=== PATIENT | female | born 1990 | race Caucasian/White ===

== ENCOUNTER → 2019-01-27 17:03 | Outpatient (CLI) | payer OTHER, SELFPAY ==
[2019-01-27 17:53] LABS: Basophils % 0.1 % (0.1-2.0); Eosinophils % 0.3 % (0.1-12.0); Hematocrit 35.9 % (37.0-47.0); Hemoglobin 11.8 g/dL (12.2-16.2); Lymphocytes # 0.9 K/mm3 (0.7-4.5); Mean Corpuscular Hemoglobin 28.3 pg (27.0-31.2); Mean Corpuscular Volume 85.7 fl (81-99); Mean Platelet Volume 8.3 fl (7.4-10.4); Monocytes # 0.3 K/mm3 (0.1-1.0); Monocytes % 3.2 % (1.7-9.3); Neutrophils # 7.3 K/mm3 (1.8-7.8); Neutrophils % 86.4 % (37.0-80.0); Platelet Count 211 K/mm3 (142-424); Red Blood Count 4.19 M/mm3 (4.20-5.40); Red Cell Distribution Width 13.1 % (11.5-17.5); White Blood Count 8.5 K/mm3 (4.8-10.8)
[2019-01-27 18:08] LABS: MANUAL DIFFERENTIAL MANUAL DIFFERENTIAL (MANUAL DIFF)
[2019-01-27 19:29] LABS: Lymphocytes % 9 % (10-50); Monocytes % 5 % (2-9); Neutrophils % 85 % (42-76); Total Cells Counted 100
[2019-01-27 19:31] LABS: Platelet Estimate Normal; RBC Morphology Normal
[2019-01-27 20:01] LABS: Alanine Aminotransferase 31 U/L (12-78); Albumin Level 4.2 gm/dL (3.4-5.0); Albumin/Globulin Ratio 1.6 (1.1-1.8); Alkaline Phosphatase 55 U/L (46-116); Anion Gap 14.1 mEq/L (5-15); Aspartate Amino Transferase 18 U/L (15-37); Bilirubin,Total 0.5 mg/dL (0.2-1.0); Blood Urea Nitrogen 17 mg/dL (7-18); Calcium 8.6 mg/dL (8.5-10.1); Carbon Dioxide 26 mmol/L (21.0-32.0); Chloride 104 mmol/L (98-107); Chol/HDL Ratio 2.3 (1-3.5); Cholesterol 156 mg/dL (140-200); Creatinine,Serum 0.77 mg/dL (0.55-1.02); Estimated Glomerular Filt Rate 89 ml/min (>60); GFR (African American) 108 ML/MIN (>60); Globulin 2.6 gm/dl (1.3-3.2); Glucose 79 mg/dL (74-106); HDL Cholesterol 67 mg/dL (29-89); LDL Cholesterol 80 mg/dL (0-130); Potassium 4.1 mmoL/L (3.5-5.1); Sodium 140 mmol/L (136-145); Total Protein,Serum 6.8 gm/dL (6.4-8.2); Triglycerides 43 mg/dL (30-200); VLDL Cholesterol 9 mg/dL (0-40)
[2019-01-29 10:48] LABS: FSH 5.6 mIU/mL (.); LH 22.7 mIU/mL (.); Vitamin D 25 Hydroxy 28.3 ng/mL (30.0-100.0)
[2019-01-29 17:04] LABS: Peripheral Smear Review Scanned Result
[2019-02-01 09:48] LABS: Estrogen 239 pg/mL (.)
== END ==
PROVIDERS: Visit Provider Physician Assistant
DX: D70.9 Neutropenia, unspecified (principal)
CPT/HCPCS: 80053; 80061; 82652; 82672; 83001; 83002; 85007; 85025

== ENCOUNTER → 2019-02-16 12:42 | Outpatient (CLI) | payer OTHER, SELFPAY ==
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
== END ==
PROVIDERS: PCP Physician Assistant; Visit Provider Physician Assistant
DX: R42 Dizziness and giddiness (principal); R51 Headache; Z80.8 Family history of malignant neoplasm of other organs or systems
CPT/HCPCS: 70450

== ENCOUNTER → 2019-08-25 11:40 | Outpatient (CLI) | payer OTHER, SELFPAY ==
--- NOTE | 2019-08-25 11:57 | XR_ITS ---
PROCEDURE: XR LUMBAR SPINE 2-3V CLINICAL INDICATION: back pain COMPARISON: No exams were available for comparison FINDINGS: Bone density, vertebral body heights and disc space heights are normal. Posterior elements are intact. There is mild curvature, convex towards the right. There are 2 punctate calcific densities overlying the lower pole of the right renal shadow. IMPRESSION: No acute process. Possible mild dextroscoliosis versus positioning during the exam. Possible punctate lower pole right renal calculi. Dictated by: Benny Carrero 08/25/2019 13:22 Electronically signed by Benny Carrero in [facility] 08/25/2019 13:22
[2019-08-25 12:01] LABS: Basophils # 0.1 K/mm3 (0-0.2); Basophils % 0.8 % (0.1-2.0); Eosinophils # 0.1 K/mm3 (0.0-0.4); Eosinophils % 1.8 % (0.1-12.0); Hematocrit 40.3 % (37.0-47.0); Hemoglobin 12.5 g/dL (12.2-16.2); Lymphocytes # 2.1 K/mm3 (0.7-4.5); Lymphocytes % 27.3 % (10-50); Mean Corpuscular Hemoglobin 26.8 pg (27.0-31.2); Mean Corpuscular Volume 86.6 fl (81-99); Mean Platelet Volume 7.9 fl (7.4-10.4); Monocytes # 0.4 K/mm3 (0.1-1.0); Monocytes % 5.1 % (1.7-9.3); Neutrophils # 5.1 K/mm3 (1.8-7.8); Platelet Count 241 K/mm3 (142-424); Red Blood Count 4.65 M/mm3 (4.20-5.40); Red Cell Distribution Width 13.9 % (11.5-17.5); White Blood Count 7.8 K/mm3 (4.8-10.8)
[2019-08-25 12:47] LABS: HCG Qualitative, Serum Negative (Negative)
[2019-08-25 14:16] LABS: Erythrocyte Sedimentation Rate 14 mm/hr (0-20)
[2019-08-25 14:50] LABS: Alanine Aminotransferase 19 U/L (12-78); Albumin Level 3.9 gm/dL (3.4-5.0); Albumin/Globulin Ratio 1.3 (1.1-1.8); Alkaline Phosphatase 63 U/L (46-116); Anion Gap 14.1 mEq/L (5-15); Aspartate Amino Transferase 12 U/L (15-37); Bilirubin,Total 0.4 mg/dL (0.2-1.0); Blood Urea Nitrogen 13 mg/dL (7-18); Calcium 8.4 mg/dL (8.5-10.1); Carbon Dioxide 27 mmol/L (21.0-32.0); Chloride 106 mmol/L (98-107); Estimated Glomerular Filt Rate 99 ml/min (>60); GFR (African American) 120 ML/MIN (>60); Globulin 2.9 gm/dl (1.3-3.2); Glucose 67 mg/dL (74-106); Potassium 4.1 mmoL/L (3.5-5.1); Sodium 143 mmol/L (136-145); Total Protein,Serum 6.8 gm/dL (6.4-8.2); Uric Acid 2.9 mg/dL (2.6-7.2)
[2019-08-25 14:54] LABS: C-Reactive Protein < 0.2 mg/dL (0.0-0.9)
[2019-08-26 11:31] LABS: Anti-Centromere B Antibodies <0.2 AI (0.0-0.9); Anti-Jo-1 <0.2 AI (0.0-0.9); Anti-Smith Antibody <0.2 AI (0.0-0.9); Antichromatin Antibodies <0.2 AI (0.0-0.9); Antiscleroderma-70 Antibodies <0.2 AI (0.0-0.9); RNP Antibodies <0.2 AI (0.0-0.9); Sjogren's Anti-SS-A <0.2 AI (0.0-0.9); Sjogren's Anti-SS-B <0.2 AI (0.0-0.9)
[2019-08-26 11:43] LABS: Anti-DNA (DS) Ab Qn <1 IU/mL (0-9); RA Latex Turbid. 10.9 IU/mL (0.0-13.9)
[2019-08-26 18:58] LABS: Antinuclear Antibodies, IFA Negative (.)
[2019-08-29 09:10] LABS: PTT-LA 39.5 sec (0.0-51.9); dRVVT 37.3 sec (0.0-47.0)
[2019-08-29 15:19] LABS: Lupus Reflex Interpretation Comment: (.)
== END ==
PROVIDERS: Visit Provider Nurse Practitioner Family
DX: M54.9 Dorsalgia, unspecified (principal)
CPT/HCPCS: 36415; 72100; 80053; 84550; 84703; 85025; 85613; 85651; 86038; 86140; 86225; 86235; 86431

== ENCOUNTER → 2019-09-05 12:15 | Outpatient (CLI) | payer OTHER, SELFPAY ==
--- NOTE | 2019-09-05 13:21 | XR_ITS ---
PROCEDURE: XR SCOLIOSIS SURVEY CLINICAL INDICATION: mild dextroscoliosis COMPARISON: XR LUMBAR SPINE 2-3V from 08/25/2019 FINDINGS: There is a mild lower thoracic curvature convex left measuring 6 degrees. There is a mild lumbar scoliosis convex right measuring 10 degrees. This is not significantly changed. IMPRESSION: Mild thoracolumbar scoliosis as described above Dictated by: Jey Jiménez MD 09/05/2019 19:53 Electronically signed by Jey Jiménez MD in [facility] 09/05/2019 19:53
[2019-09-05 13:27] LABS: Glucose,Fasting 90 mg/dL (60-105)
[2019-09-05 14:31] LABS: Glucose 1 Hour 106 mg/dL (74-106)
[2019-09-05 16:07] LABS: Glucose 2 Hour 96 mg/dL (74-106)
[2019-09-05 16:46] LABS: Glucose 3 Hour 94 mg/dL (74-106)
== END ==
PROVIDERS: PCP Emergency Medicine; Visit Provider Nurse Practitioner Family
DX: E16.2 Hypoglycemia, unspecified (principal); M54.9 Dorsalgia, unspecified
CPT/HCPCS: 36415; 72081; 82951

== ENCOUNTER → 2019-09-07 15:16 | Outpatient (CLI) | payer OTHER, SELFPAY ==
--- NOTE | 2019-09-07 15:17 | CT_ITS ---
PROCEDURE: CT ABDOMEN PELVIS WO CON CLINICAL INDICATION: possible kidney stone seen on lumbar film Left flank pain, mid back pain COMPARISON: XR LUMBAR SPINE 2-3V from 08/25/2019 XR SCOLIOSIS SURVEY from 09/05/2019 TECHNIQUE: Axial images obtained with sagittal and coronal reformats. All CT scans at the facility use one or more dose reduction, viz: automated exposure control, ma/kV adjustment per patient size (including targeted exams where dose is matched to indication, i.e. head), or iterative reconstruction technique. FINDINGS: LOWER THORAX: The pericardium is thickened posteriorly measuring up to 2 cm consistent pericardial effusion. ABDOMEN & PELVIS: The gallbladder is contracted. The liver, spleen, adrenal glands, and pancreas have an unremarkable unenhanced appearance. A 4 mm stone overlies the lower pole of the right kidney. No hydronephrosis. No ureteral calculus. No intestinal obstruction or free air. No evidence of appendicitis. There is a small amount of fluid in the cul-de-sac which is nonspecific. No obvious pelvic mass or abnormal fluid collection. There is mild degenerative disc disease at L5-S1. IMPRESSION: 1. Nonobstructing right nephrolithiasis. 2. Small amount of fluid in the cul-de-sac 3. Pericardial effusion Dictated by: Jey Jiménez MD 09/07/2019 16:08 Electronically signed by Jey Jiménez MD in [facility] 09/07/2019 16:08
== END ==
PROVIDERS: PCP Emergency Medicine; Visit Provider Nurse Practitioner Family
DX: N20.0 Calculus of kidney (principal)
CPT/HCPCS: 74176

== ENCOUNTER → 2019-09-14 08:00 | Outpatient (CLI) | payer OTHER, SELFPAY ==
--- NOTE | 2019-09-14 08:01 | CA_ITS ---
APPROVED REPORT EXAM: Comprehensive 2D, Doppler, and color-flow Echocardiogram Electrical Lineman: Reina Kurtz RT(R) Ht: 5 ft 6 in Wt: 116lbs BSA: 1.59 BP: 118/80 mmHg Indications: Pericardial effusion on CT scan, family hx of HD, ALEJANDRA, Fatigue, 2D Dimensions LVOT 1.99 cm (M/F) 1.5-2.5 M-Mode Dimensions RVDd 1.67 cm (0.9-2.6) LVDd 5.06 cm (3.5-5.7) LVDs 3.58 cm (3.5-5.7) IVSd 0.75 cm (0.6-1.1) PWd 0.48 cm (0.6-1.1) EF (Teich) 55.80% FS 29.20% EDV (Teich) 121.60 mL ESV (Teich) 53.70 mL LV Diastology E/A Ratio 2.46 Mitral Valve MV A Velocity 37.00 (40-130 cm/s) Left Ventricle Left atrium is normal size, left ventricle is normal size, there is no concentric left ventricular hypertrophy, visually estimated ejection fraction 55% with no regional wall motion abnormality. Diastolic parameters are within normal range. Right Ventricle Right atrium right ventricular normal size and contractility. Aortic Valve Aortic valve is grossly normal, there is no aortic stenosis aortic insufficiency. Mitral Valve Mitral valve is grossly normal, there is no mitral stenosis, there is trace mitral regurgitation. Tricuspid Valve Tricuspid valve is grossly normal, there is trace tricuspid regurgitation. Tricuspid regurgitation jet velocity is inadequate for calculation of the right ventricular systolic pressure. Pulmonic Valve Pulmonic valve is poorly visualized. Great Vessels Aortic root is normal size. Pericardium Trivial pericardial effusion noted. Conclusion 1. Normal left ventricular size, preserved left ventricular systolic function, visually estimated ejection fraction 55% with no regional wall motion abnormality, diastolic parameters are within normal range. 2. Trace mitral and tricuspid regurgitation 3. Trivial pericardial effusion noted. Electronically signed by : Jose Roblero, 09/15/2019 14:13:53
== END ==
PROVIDERS: PCP Emergency Medicine; Visit Provider Internal Medicine Cardiovascular Disease
DX: I31.3 Pericardial effusion (noninflammatory) (principal); R06.00 Dyspnea, unspecified; Z82.49 Family history of ischemic heart disease and other diseases of the circulatory system
CPT/HCPCS: 93306

== ENCOUNTER → 2019-10-10 14:18 | Outpatient (CLI) | payer OTHER, SELFPAY ==
[2019-10-10 14:47] LABS: Urine Pregnancy, HCG Qual. Negative (Negative)
== END ==
PROVIDERS: Visit Provider Specialist
DX: R51 Headache (principal); H53.9 Unspecified visual disturbance
CPT/HCPCS: 81025

== ENCOUNTER 2019-11-02 13:00 | Outpatient (RCR) | payer OTHER, SELFPAY ==
--- NOTE | 2019-09-23 14:54 | HMH.PTOPEV ---
PT Outpatient Evaluation Rehab PT Outpatient Evaluation Start: 09/23/19 14:39 Freq: Status: Active Protocol: Document 09/23/19 14:39 SHARLA (Rec: 09/23/19 14:53 SHARLA [id number]) Electronically Signed By Edwar Mcrae, PT 09/23/19 14:39 Outpatient Therapy Subjective History Subjective History Pt reports h/o chronic LBP and neck pain since first in 2008. Pt reports exacerbation of s/s over the last ~1-2 yrs with L>R sided neck/UTmm area pain, and L>R sided LBP with intermittent N& T in BLE's. Pt also reports h/ o intermittent mid-back pain, and R knee pain. Chief Complaint Pain,Stiff,Paresthesia Symptom Type Ache,Sharp,Dull Symptoms Relieved By Rest/Positioning Symptoms Aggravated By Bending/Stooping,Physical Activity,Twisting,Lifting Prior Functional Limitations Lifting,Housework,Squatting, Bending/Stooping Current Functional Limitations Lifting,Housework,Squatting, Balance Symptom Description Constant but Variable Level of pain today (0-10) 5 Pain scale - at its best (0-10) 5 Pain scale - at its worst (0-10) 10 Cervical Eval Palpation Cervical Muscles R Cervical Paraspinal,L Cervical Paraspinal,R Suboccipital,L Suboccipital,R CT Junction,L CT Junction,R Upper Trapezius,L Upper Trapezius Cervical/Thoracic Palpation Findings Tenderness,Trigger Point Posture Head/C-Spine Posture Sitting Position Neutral Position Head/C-Spine Posture Standing Position Neutral Position Flexibility Deficits Upper Trapezius Muscle Length (R) Mild Tightness,(L) Mild Tightness Scalene Group Muscle Length (R) Mild Tightness,(L) Mild Tightness Pectoralis Major Muscle Length (R) Mild Tightness,(L) Mild Tightness Passive Joint Mobility Cervical PIVM WNL: R OA L OA R AA L AA R C2/3 L C2/3 R C3/4 L C3/4 R C4/5 L C4/5 R C5/6
--- NOTE | 2019-10-24 13:38 | HMH.RHREAS ---
Rehab Reassessment Rehab OP Re-assessment Start: 10/24/19 12:42 Freq: Status: Active Protocol: Document 10/24/19 13:33 FRANDYGUERRERO (Rec: 10/24/19 13:38 BHANUJOSE JUANGUERRERO [id number]) Electronically Signed By Edwar Mcrae, PT 10/24/19 13:33 Rehab Re-assessment Subjective Subjective PT REPORTS 5-7/10 NECK AND LOW BACK PAIN ON VAS, AND FEELS 50% BETTER OVERALL SINCE I EVAL Objective Objective Notes AROM: C-SPINE FLX 0-90, EXT 0- 70, B SB 0-60, L-SPINE FLX 0- 90, EXT 0-10, B SB 0-35 MMT: B DELTOID 4-4+/5, B HIP FLX/ABD/EXT/ADD 4/5 TTP: L UT 1-2/4, R UT /4, B LUMBAR PARA. 09/03 Assessment Progress Assessment Progressing as Expected Assessment Notes PT W/IMPROVED STRENGTH, TTP, AND ROM Patient goals met STG'S 02/04 LTG'S 09/08 Goals Not Met STG'S 09/06, LTG'S 04/08 Plan Plan PT TO CONT. W/SKILLED P.T. TO MAKE FURTHER IMPROVEMENTS IN AROM, STRENGTH, AND TTP TO ALLOW FOR OPTIMAL FUNCTION Frequency of Therapy 1-2X/WK Duration of therapy 3-4 WKS Time and Billing Re-Eval Time 15 Re-Eval Billing Units 1 PHYSICIAN CERTIFICATION: I certify the specified therapy services for Estefania Hilton are required, authorized, and reviewed every 30 days.
== END 2019-11-02 13:55 | disposition home or self-care (01) ==
LOC: PT 13:00
PROVIDERS: PCP Nurse Practitioner Family; Visit Provider Nurse Practitioner Family
DX: M54.9 Dorsalgia, unspecified (principal)
CPT/HCPCS: 20560; 20561; 97010; 97012; 97014; 97035; 97110; 97140; 97163; 97164; G0283

== ENCOUNTER → 2020-03-20 14:23 | Outpatient (CLI) | payer OTHER, SELFPAY ==
[2020-03-20 17:03] LABS: HCG,Quantitative < 2 mIU/ml (0-5.42)
== END ==
PROVIDERS: Visit Provider Nurse Practitioner Psychiatric/Mental Health
DX: Z34.90 Encounter for supervision of normal pregnancy, unspecified, unspecified trimester (principal)
CPT/HCPCS: 36415; 84702

== ENCOUNTER → 2020-04-03 11:13 | Outpatient (CLI) | payer OTHER, SELFPAY ==
[2020-04-03 11:49] LABS: Basophils % 0.6 % (0.1-2.0); Eosinophils # 0.1 K/mm3 (0.0-0.4); Eosinophils % 2.2 % (0.1-12.0); Hematocrit 39.7 % (37.0-47.0); Hemoglobin 13.2 g/dL (12.2-16.2); Lymphocytes % 34.7 % (10-50); Mean Corpuscular HGB Conc 33.1 g/dL (31.8-35.4); Mean Corpuscular Hemoglobin 29.4 pg (27.0-31.2); Mean Corpuscular Volume 88.7 fl (81-99); Mean Platelet Volume 7.7 fl (7.4-10.4); Monocytes # 0.3 K/mm3 (0.1-1.0); Monocytes % 4.6 % (1.7-9.3); Neutrophils # 3.3 K/mm3 (1.8-7.8); Neutrophils % 57.9 % (37.0-80.0); Platelet Count 196 K/mm3 (142-424); Red Blood Count 4.48 M/mm3 (4.20-5.40); Red Cell Distribution Width 13.2 % (11.5-17.5); White Blood Count 5.7 K/mm3 (4.8-10.8)
[2020-04-03 12:13] LABS: Chloride 103 mmol/L (98-107); Potassium 4.2 mmoL/L (3.5-5.1); Sodium 140 mmol/L (136-145)
[2020-04-03 12:15] LABS: Alanine Aminotransferase 15 U/L (12-78); Blood Urea Nitrogen 13 mg/dl (7-17); Estimated Glomerular Filt Rate 98 ml/min (>60); GFR (African American) 119 ML/MIN (>60)
[2020-04-03 12:16] LABS: Albumin Level 4.5 g/dl (3.5-5.0); Alkaline Phosphatase 46 U/L (38-126); Anion Gap 12.2 mEq/L (5-15); Aspartate Amino Transferase 22 U/L (14-36); Bilirubin,Total 0.6 mg/dl (0.2-1.3); Calcium 9.3 mg/dl (8.4-10.2); Carbon Dioxide 29 mmol/L (22.0-30.0); Cholesterol 156 mg/dl (140-200); Globulin 2.3 g/dL (1.3-3.2); Glucose 93 mg/dl (74-100); HDL Cholesterol 69 mg/dl (40-60); Total Protein,Serum 6.8 g/dl (6.3-8.2); Triglycerides 70 mg/dl (30-150); VLDL Cholesterol 14 mg/dL (0-40)
[2020-04-03 12:19] LABS: Chol/HDL Ratio 2.3 (1-3.5)
[2020-04-03 12:27] LABS: Direct LDL Cholesterol 70.12 mg/dL (100-129); Hemoglobin A1C 5.2 % (4.0-6.0)
== END ==
PROVIDERS: Visit Provider Nurse Practitioner Psychiatric/Mental Health
DX: Z00.00 Encounter for general adult medical examination without abnormal findings (principal); Z79.899 Other long term (current) drug therapy; F33.41 Major depressive disorder, recurrent, in partial remission; F41.1 Generalized anxiety disorder
CPT/HCPCS: 80053; 80061; 83036; 84443; 85025

== ENCOUNTER → 2020-05-10 16:03 | Outpatient (CLI) | payer OTHER, SELFPAY ==
[2020-05-10 16:59] LABS: HCG,Quantitative 14056 mIU/ml (0-5.42)
== END ==
PROVIDERS: Visit Provider Nurse Practitioner Psychiatric/Mental Health
DX: Z34.90 Encounter for supervision of normal pregnancy, unspecified, unspecified trimester (principal)
CPT/HCPCS: 36415; 84702

== ENCOUNTER → 2020-05-23 13:16 | Outpatient (CLI) | payer OTHER, SELFPAY ==
--- NOTE | 2020-05-23 13:26 | US_ITS ---
PROCEDURE: US OB TRANSVAGINAL CLINICAL INDICATION: DATES Early Ob ultrasound for dates COMPARISON: None FINDINGS: An intrauterine gestational sac is present with a pole with a crown-rump length of 1.39 cm correlating to gestational age of 7weeks 5days. heart tones are present with an FHR of 149bpm. Yolk sac is noted. There is a 1.6 cm right ovarian cyst IMPRESSION: Live IUP at 7 weeks 5 days Estimated due date by Ultrasound is 01/04/2021 Dictated by: Jey Jiménez MD 05/23/2020 17:00 Jey Jiménez MD in [facility] 05/23/2020 17:00
== END ==
PROVIDERS: PCP Emergency Medicine; Visit Provider Obstetrics & Gynecology
DX: O26.841 Uterine size-date discrepancy, first trimester (principal)
CPT/HCPCS: 76817

== ENCOUNTER → 2020-05-28 15:06 | Outpatient (CLI) | payer OTHER, SELFPAY ==
[2020-05-28 15:29] LABS: Basophils % 0.4 % (0.1-2.0); Eosinophils # 0.1 K/mm3 (0.0-0.4); Eosinophils % 1.1 % (0.1-12.0); Hematocrit 35.1 % (37.0-47.0); Hemoglobin 11.4 g/dL (12.2-16.2); Lymphocytes # 1.8 K/mm3 (0.7-4.5); Lymphocytes % 17.3 % (10-50); Mean Corpuscular HGB Conc 32.4 g/dL (31.8-35.4); Mean Corpuscular Hemoglobin 28.8 pg (27.0-31.2); Mean Platelet Volume 7.8 fl (7.4-10.4); Monocytes # 0.4 K/mm3 (0.1-1.0); Monocytes % 4.2 % (1.7-9.3); Neutrophils # 7.9 K/mm3 (1.8-7.8); Platelet Count 211 K/mm3 (142-424); Red Blood Count 3.95 M/mm3 (4.20-5.40); Red Cell Distribution Width 12.8 % (11.5-17.5); White Blood Count 10.3 K/mm3 (4.8-10.8)
[2020-05-30 10:07] LABS: HIV Screen 4th Generation wRfx Non Reactive (Non Reactive)
[2020-05-30 13:30] LABS: Rubella Antibodies, IgG 3.88 index (Immune >0.99)
[2020-05-31 09:33] LABS: Hepatitis B Surface Antigen Negative (Negative); Hepatitis C Antibody 0.1 s/co ratio (0.0-0.9); Rapid Plasma Reagin Ab Titer Non Reactive (NonRea<1:1)
== END ==
PROVIDERS: Visit Provider Obstetrics & Gynecology
DX: Z34.90 Encounter for supervision of normal pregnancy, unspecified, unspecified trimester (principal)
CPT/HCPCS: 36415; 85025; 86592; 86703; 86762; 86850; 87340; 87380; G0432

== ENCOUNTER → 2020-08-17 10:22 | Outpatient (CLI) | payer OTHER, SELFPAY ==
--- NOTE | 2020-08-17 10:29 | US_ITS ---
PROCEDURE: US OB /MATERNAL DETAIL CLINICAL INDICATION: US OB Complete Anatomy exam COMPARISON: US US OB TRANSVAGINAL from 05/23/2020 FINDINGS: There is a single live intrauterine gestation which is in cephalic presentation. Cervix is closed and measures 3 cm. The placenta is posterior and grade 1. Complete survey performed and was unremarkable on the submitted images as in PACS. No discrete anomalies identified on survey imaging by technologist. Active fetus. Three-vessel cord with satisfactory umbilical cord insertion. 4- chamber heart noted. Survey of brain & ventricles Unremarkable. Face and neck survey unremarkable. Diaphragm and chest views unremarkable. Abdomen: Both kidneys noted and unremarkable. Stomach noted and satisfactory. Spine: Survey of the spine satisfactory with no anomalies identified nor imaged. Both arms and legs noted. Amniotic Fluid: Adequate. Maternal adnexa: No significant findings. Measurements: Average ultrasound age 20weeks. Gestational Age 20weeks Estimated due date by ultrasound age 0501/04/2021. Estimated weight 319g BPD = 20weeks 1day OFD = 20weeks 5days HC = 19weeks 5days AC = 20weeks FL = 19weeks 6days Growth Percentile= 39Percent% Heart Rate = 149bpm Cerebellum = 20weeks Humerus = 20weeks 1day HC/AC is 1.16 CI is 0.76 FL/BPD is 0.68 FL/AC is 0.21 IMPRESSION: Live IUP with an average ultrasound age of 20 weeks. No obvious anomalies. Please see above for detail Dictated by: Jey Jiménez MD 08/18/2020 10:29 Jey Jiménez MD in [facility] 08/18/2020 10:29
== END ==
PROVIDERS: PCP Emergency Medicine; Visit Provider Obstetrics & Gynecology
DX: Z36.0 Encounter for antenatal screening for chromosomal anomalies (principal)
CPT/HCPCS: 76811

== ENCOUNTER → 2020-10-12 09:50 | Outpatient (CLI) | payer OTHER, SELFPAY ==
[2020-10-12 10:39] LABS: Glucose,Fasting 94 mg/dl (74-100)
[2020-10-12 11:36] LABS: Glucose 1 Hour 112 mg/dL (74-100)
== END ==
PROVIDERS: Visit Provider Obstetrics & Gynecology
DX: Z34.90 Encounter for supervision of normal pregnancy, unspecified, unspecified trimester (principal)
CPT/HCPCS: 36415; 82951

== ENCOUNTER 2020-10-24 13:51 | Outpatient (CLI) | payer OTHER, SELFPAY ==
[2020-10-24 14:02] VITALS: BP 132/71; PULSE 98; RESP 18; TEMP 36.8; O2SAT 97
== END 2020-10-24 14:02 | disposition home or self-care (01) ==
PROVIDERS: PCP Emergency Medicine; Visit Provider Obstetrics & Gynecology
DX: Z34.90 Encounter for supervision of normal pregnancy, unspecified, unspecified trimester (principal)
CPT/HCPCS: 96372; J2790

== ENCOUNTER 2020-11-14 21:00 | Outpatient (CLI) | payer OTHER, SELFPAY ==
[2020-11-14 21:03] VITALS: BMI 23.3
[2020-11-14 21:34] VITALS: BP 119/70; PULSE 88; RESP 17; TEMP 36.9; O2SAT 97; BMI 23.3
[2020-11-14 21:38] LABS: Microscopic, Urine URINE MICROSCOPIC (MICROSCOPIC)
[2020-11-14 21:48] LABS: Appearance,Urine CLEAR (Clear); Bilirubin,Urine Negative (Negative); Blood, Urine TRACE-L (Negative); Color,Urine YELLOW (Yellow); Glucose,Urine (UA) Negative (Negative); Ketones,Urine Negative (Negative); Leukocyte Esterase,Urine Negative (Negative); Nitrate,Urine Negative (Negative); PH,Urine 6.5 (5.0-8.5); Protein,Urine Negative (Negative); Urobilinogen,Urine 0.2 EU/dl (0.2)
[2020-11-14 21:56] LABS: Barbiturates Screen,Urine Negative ng/ml (<200)
[2020-11-14 21:57] LABS: Amphetamine/Metha Screen,Urine Negative ng/ml (<1000); Benzodiazepines Screen,Urine Negative ng/ml (<200)
[2020-11-14 21:58] LABS: Cannabinoid Screen,Urine Positive ng/ml (<50)
[2020-11-14 21:59] LABS: Cocaine Screen,Urine Negative ng/ml (<300); Methadone Screen,Urine Negative ng/ml (<300)
[2020-11-14 22:00] LABS: Opiate Screen,Urine Negative ng/ml (<300)
[2020-11-14 22:01] LABS: Phencyclidine Screen,Urine Negative ng/ml (<25)
[2020-11-14 22:12] LABS: Bacteria,Urine 1+ /lpf; Mucus,Urine 1+ /lpf
[2020-11-14 22:36] LABS: Fetal Fibronectin (Rapid) Negative (Negative)
== END 2020-11-14 23:03 | disposition home or self-care (01) ==
LOC: OBOUT 21:02 → OB 21:03
PROVIDERS: PCP Obstetrics & Gynecology; Visit Provider Nurse Practitioner Obstetrics & Gynecology
DX: O47.03 False labor before 37 completed weeks of gestation, third trimester (principal); Z3A.32 32 weeks gestation of pregnancy
CPT/HCPCS: 59025; 80305; 81001; 82731; 96372; G0463

== ENCOUNTER 2020-11-15 19:50 | Outpatient (CLI) | payer OTHER, SELFPAY ==
[2020-11-15 20:00] VITALS: BP 120/67; PULSE 95; RESP 18; TEMP 36.8; O2SAT 99; BMI 23.3
--- NOTE | 2020-11-15 20:02 | PC.NURSE ---
Pt 2nd dose of celestone given
[2020-11-15 20:20] VITALS: BP 115/69; PULSE 95; RESP 18; O2SAT 97
== END 2020-11-15 20:23 | disposition home or self-care (01) ==
LOC: OBOUT 19:52 → OB 19:53
PROVIDERS: PCP Obstetrics & Gynecology; Visit Provider Obstetrics & Gynecology
DX: O47.03 False labor before 37 completed weeks of gestation, third trimester (principal); Z3A.32 32 weeks gestation of pregnancy
CPT/HCPCS: 96372; G0463

== ENCOUNTER 2020-11-29 13:51 | Outpatient (CLI) | payer OTHER, SELFPAY ==
[2020-11-29 14:29] VITALS: BMI 24.5
[2020-11-29 14:34] VITALS: BP 124/77; PULSE 61; RESP 18; TEMP 36.7; O2SAT 100; BMI 24.5
[2020-11-29 14:34] LABS: Microscopic, Urine URINE MICROSCOPIC (MICROSCOPIC)
[2020-11-29 14:36] LABS: Appearance,Urine CLEAR (Clear); Bilirubin,Urine Negative (Negative); Blood, Urine 3+ (Negative); Color,Urine YELLOW (Yellow); Glucose,Urine (UA) Negative (Negative); Ketones,Urine Negative (Negative); Leukocyte Esterase,Urine Negative (Negative); Nitrate,Urine Negative (Negative); Protein,Urine Negative (Negative); Specific Gravity, Urine >= 1.030 (1.005-1.030); Urobilinogen,Urine 0.2 EU/dl (0.2)
[2020-11-29 14:47] LABS: Barbiturates Screen,Urine Negative ng/ml (<200)
[2020-11-29 14:48] LABS: Amphetamine/Metha Screen,Urine Negative ng/ml (<1000); Benzodiazepines Screen,Urine Negative ng/ml (<200)
[2020-11-29 14:49] LABS: Cannabinoid Screen,Urine Positive ng/ml (<50)
[2020-11-29 14:50] LABS: Cocaine Screen,Urine Negative ng/ml (<300); Methadone Screen,Urine Negative ng/ml (<300)
[2020-11-29 14:51] LABS: Opiate Screen,Urine Negative ng/ml (<300); Phencyclidine Screen,Urine Negative ng/ml (<25)
== END 2020-11-29 16:00 | disposition home or self-care (01) ==
LOC: OBOUT 13:52 → OB 13:53
PROVIDERS: PCP Obstetrics & Gynecology; Visit Provider Obstetrics & Gynecology
DX: O47.03 False labor before 37 completed weeks of gestation, third trimester (principal); Z3A.35 35 weeks gestation of pregnancy
CPT/HCPCS: 59025; 80305; 81001; 96365; 96367; G0463; J2405

== ENCOUNTER 2020-12-02 07:12 | Outpatient (CLI) | payer OTHER, SELFPAY ==
[2020-12-02 07:17] VITALS: BMI 25.0
[2020-12-02 07:30] VITALS: BP 126/84; PULSE 81; RESP 18; TEMP 36.8; O2SAT 100; BMI 24.2
[2020-12-02 07:34] LABS: Microscopic, Urine URINE MICROSCOPIC (MICROSCOPIC)
[2020-12-02 07:39] LABS: Appearance,Urine CLEAR (Clear); Bilirubin,Urine Negative (Negative); Blood, Urine 3+ (Negative); Color,Urine YELLOW (Yellow); Glucose,Urine (UA) Negative (Negative); Ketones,Urine TRACE (Negative); Leukocyte Esterase,Urine Negative (Negative); Nitrate,Urine Negative (Negative); Protein,Urine Negative (Negative); Specific Gravity, Urine 1.025 (1.005-1.030); Urobilinogen,Urine 0.2 EU/dl (0.2)
[2020-12-02 07:45] LABS: Barbiturates Screen,Urine Negative ng/ml (<200); Benzodiazepines Screen,Urine Negative ng/ml (<200)
[2020-12-02 07:46] LABS: Amphetamine/Metha Screen,Urine Negative ng/ml (<1000)
[2020-12-02 07:47] LABS: Cocaine Screen,Urine Negative ng/ml (<300); Methadone Screen,Urine Negative ng/ml (<300)
[2020-12-02 07:48] LABS: Cannabinoid Screen,Urine Positive ng/ml (<50)
[2020-12-02 07:49] LABS: Opiate Screen,Urine Negative ng/ml (<300); Phencyclidine Screen,Urine Negative ng/ml (<25)
[2020-12-02 07:55] LABS: Amorphous Sediment,Urine 1+ /lpf; RBC,Urine 20-50 #/hpf (0-3)
== END 2020-12-02 09:26 | disposition home or self-care (01) ==
LOC: OBOUT 07:15 → OB 07:16
PROVIDERS: PCP Emergency Medicine; Visit Provider Obstetrics & Gynecology
DX: Z3A.35 35 weeks gestation of pregnancy; O26.833 Pregnancy related renal disease, third trimester; M54.5 Low back pain
CPT/HCPCS: 59025; 80305; 81001; 96365; 96367; G0463

== ENCOUNTER → 2020-12-10 16:30 | Outpatient (CLI) | payer OTHER, SELFPAY | PROVIDERS: Visit Provider Obstetrics & Gynecology | DX: Z34.90 Encounter for supervision of normal pregnancy, unspecified, unspecified trimester (principal) | CPT/HCPCS: 86403 ==

== ENCOUNTER → 2020-12-11 09:26 | Outpatient (CLI) | payer OTHER, SELFPAY ==
--- NOTE | 2020-12-11 09:26 | US_ITS ---
PROCEDURE: US OB FOLLOW UP CLINICAL INDICATION: Growth and ANGUS Small for gestational age COMPARISON: US US OB /MATERNAL DETAIL from 08/17/2020 FINDINGS: There is a single live fetus which is in cephalic presentation. The cervix is closed and measures 3 cm in length. The placenta is posterior and grade 3. Fetus stomach is slightly prominent. A definite double bubble is not identified. There is no polyhydramnios. ANGUS is 11 cm Measurements: Average ultrasound age 34weeks. Gestational Age 36weeks 4days Estimated due date by ultrasound age 0501/22/2021. Estimated weight 2,297g BPD = 33weeks 4days OFD = 37weeks HC = 34weeks 5days AC = 34weeks 2days FL = 33weeks 1day Growth Percentile= 5 % Heart Rate = 143bpm HC/AC is 1.02 CI is 0.74 FL/BPD is 0.77 FL/AC is 0.21 IMPRESSION: Live IUP in cephalic presentation with an average ultrasound age of 34 weeks. Estimated weight is 2297 g which is 5th percentile indicating intrauterine growth restriction. ANGUS is normal at 11 cm. The placenta is posterior and grade 3. No obvious previa or abruption Mild prominence of the fetus stomach. This does raise the question of duodenal atresia however, there is no double bubble sign and no evidence of polyhydramnios. Follow-up suggested Dictated by: Jey Jiménez MD 12/14/2020 14:36 Jey Jiménez MD in [facility] 12/14/2020 14:36
== END ==
PROVIDERS: PCP Emergency Medicine; Visit Provider Obstetrics & Gynecology
DX: O36.5990 Maternal care for other known or suspected poor fetal growth, unspecified trimester, not applicable or unspecified (principal)
CPT/HCPCS: 76816

== ENCOUNTER 2020-12-14 08:18 | Inpatient (IN) | payer OTHER, SELFPAY ==
[2020-12-14 07:20] VITALS: BP 121/80; PULSE 88; RESP 16; TEMP 36.5; O2SAT 98; BMI 24.4
[2020-12-14 07:46] LABS: Microscopic, Urine URINE MICROSCOPIC (MICROSCOPIC)
[2020-12-14 07:49] LABS: Appearance,Urine SL CLOUDY (Clear); Bilirubin,Urine Negative (Negative); Blood, Urine 3+ (Negative); Color,Urine YELLOW (Yellow); Glucose,Urine (UA) Negative (Negative); Ketones,Urine Negative (Negative); Leukocyte Esterase,Urine Negative (Negative); Nitrate,Urine Negative (Negative); PH,Urine 7.5 (5.0-8.5); Protein,Urine TRACE (Negative); Urobilinogen,Urine 0.2 EU/dl (0.2)
[2020-12-14 07:59] LABS: Fetal Membrane Rupture (Rapid) Positive (Negative)
[2020-12-14 08:03] LABS: Amphetamine/Metha Screen,Urine Negative ng/ml (<1000); Barbiturates Screen,Urine Negative ng/ml (<200)
[2020-12-14 08:04] LABS: Benzodiazepines Screen,Urine Negative ng/ml (<200)
[2020-12-14 08:05] LABS: Cannabinoid Screen,Urine Positive ng/ml (<50); Cocaine Screen,Urine Negative ng/ml (<300)
[2020-12-14 08:06] LABS: Methadone Screen,Urine Negative ng/ml (<300)
[2020-12-14 08:07] LABS: Opiate Screen,Urine Negative ng/ml (<300); Phencyclidine Screen,Urine Negative ng/ml (<25)
[2020-12-14 08:11] LABS: Squamous Epithelial Cell,Urine 20-50 #/hpf (0-5)
[2020-12-14 08:12] LABS: Bacteria,Urine 2+ /lpf
--- NOTE | 2020-12-14 08:41 | HMH.OBAPHP ---
OB - H&P: HPI Antepartum - History of Present Illness Chief complaint: leakage of fluid History of present illness: 30 yo @ 37 wks presented with gross rupture of membranes irregular contractions but no vaginal bleeding normal movement complicated by Rh negative maternal status, mild anemia, bipolar disorder, tobacco abuse and chronic THC abuse, which she self-medicates for anxiety Also prescribed zoloft and latuda for bipolar disorder by behavioral health provider Rhogam administration given 10/24/20 recently measuring small for gestational age and ultrasound scheduled to evaluate growth and ANGUS, but patient admitted with ROM before this could be performed - Labs Blood type: A (-) negative Rubella: immune RPR/VDRL: nonreactive HBsAG: negative [facility]H History I have reviewed the patient's past medical history: Yes Medical History: Reports:: Anxiety, Kidney Stones *Have you ever received a pneumonia vaccine?: No *Have you received a flu vaccine this season?: No Laterality Cases: Bilateral: Tonsillectomy Other Surgeries: Yes: Dilation and Curettage, Other. No: Amputation: No Fractures: Yes - *Social History Smoking Status: Current every day smoker Alcohol Intake: never Alcohol Intake Frequency:: holidays/special occasions only *Occupational Status:: unemployed *Travel in the last 8 weeks: None - Psychiatric History Pschychiatric History:: Reports:: Anxiety Family Hx:: Thyroid Disorder, Cancer, Coronary Artery Disease Para: 3 Review of Systems - Review of Systems Review of systems:: pertinent systems reviewed and negative unless documented below - *Genitourinary Reports other (+ leakage of amniotic fluid, irregular contractions), Denies abnormal vaginal bleeding Meds Home Medications Medication Instructions Recorded Confirmed Type melatonin 10 mg capsule 10 mg PO HS PRN #30 cap 05/28/20 12/10/20 Rx prenat.vits,braydon,glm-nglt-tjftb 1 tab PO DAILY #30 tab 05/28/20 12/10/20 Rx sertraline 100 mg tablet 150 mg PO DAILY #45 tab 11/19/20 12/10/20 Rx sertraline 50 mg tablet 50 mg PO DAILY #30 tab 11/19/20 12/10/20 Rx amoxicillin 875 mg-potassium 1 tab PO BID 10 Days #20 tab 12/10/20 12/10/20 Rx clavulanate 125 mg tablet lurasidone 20 mg tablet 20 mg PO BID tab 12/10/20 12/10/20 History prednisone 20 mg tablet 20 mg PO BID #10 tab 12/10/20 12/10/20 Rx Allergies Allergy/AdvReac Type Severity Reaction Status Date / Time No Known Allergies Allergy Verified 12/10/20 13:17 OB - H&P: Exam - Physical Exam Vital signs: Temp Pulse Resp BP Pulse Ox 97.7 F 88 16 121/80 98 12/14/20 07:20 12/14/20 07:20 12/14/20 07:20 12/14/20 07:20 12/14/20 07:20 - Constitutional no acute distress - Routine HEENT Exam Head: Present: normocephalic, atraumatic Eye: Absent: conjunctival icterus ENT: Present: mucous membranes moist - Routine Neck Exam Present: supple - Routine Chest/Breast/Axilla Exam Chest wall: Absent: tenderness - Routine Respiratory Exam Present: CTA bilaterally - Routine Cardiovascular Exam Present: RRR - Routine Abdominal Exam Present: soft. Absent: tenderness, distended - Routine Exam Comments: cervix 4/80/-1 IUPC and FSE placed without difficulty or complication - Routine Extremities Exam Absent: edema - Routine Back/Spine/Pelvis Exam Back/Spine: Absent: CVA tenderness - Routine Skin Exam Absent: rash - Routine Neurological Exam Present: alert, oriented X3 - Routine Psychiatric Exam Present: normal affect OB - Results - Labs Labs: Short CBC 12/14/20 Range/Units 09:40 WBC 19.0 H (4.8-10.8) K/mm3 Hgb 11.4 L (12.2-16.2) g/dL Hct 33.7 L (37.0-47.0) % Plt Count 268 (142-424) K/mm3 Urine 12/14/20 Range/Units 07:25 Urine Color Yellow (Yellow) Urine Appearance Sl cloudy (Clear) Urine pH 7.5 (5.0-8.5) Ur Specific [place] 1.020 (1.005-1.030) Uri
[2020-12-14 09:52] LABS: Basophils # 0.1 K/mm3 (0-0.2); Basophils % 0.4 % (0.1-2.0); Eosinophils # 0.1 K/mm3 (0.0-0.4); Eosinophils % 0.4 % (0.1-12.0); Hematocrit 33.7 % (37.0-47.0); Hemoglobin 11.4 g/dL (12.2-16.2); Lymphocytes # 1.5 K/mm3 (0.7-4.5); Lymphocytes % 7.7 % (10-50); Mean Corpuscular HGB Conc 33.7 g/dL (31.8-35.4); Mean Corpuscular Hemoglobin 30.2 pg (27.0-31.2); Mean Corpuscular Volume 89.7 fl (81-99); Mean Platelet Volume 8.5 fl (7.4-10.4); Monocytes # 0.7 K/mm3 (0.1-1.0); Monocytes % 3.7 % (1.7-9.3); Neutrophils # 16.7 K/mm3 (1.8-7.8); Neutrophils % 87.8 % (37.0-80.0); Platelet Count 268 K/mm3 (142-424); Red Blood Count 3.76 M/mm3 (4.20-5.40); Red Cell Distribution Width 14.2 % (11.5-17.5)
[2020-12-14 09:54] LABS: MANUAL DIFFERENTIAL MANUAL DIFFERENTIAL (MANUAL DIFF)
[2020-12-14 12:21] LABS: Lymphocytes % 13 % (10-50); Monocytes % 5 % (2-9); Neutrophils % 82 % (42-76); Platelet Estimate Normal; RBC Morphology Normal; Total Cells Counted 100
--- NOTE | 2020-12-14 13:02 | HMH.DN ---
- Delivery Note Delivery Date:: 12/14/20 Delivery Time:: 10:53 Anesthesia Type: None Was labor medically induced?: No Gestational age (weeks): 37 delivered prior to 39 weeks?: Yes Justification for early elective delivery:: Premature ROM Infant Gender: Male at 1 minute: 7 at 5 minutes: 9 Delivery Procedure:: Spontaneous vaginal delivery of liveborn male over intact perineum. Delivery uncomplicated No nuchal cord; no shoulder dystocia with delivery placed in JONO with mother immediately after umbilical cord clamped/cut, with standard nursing assessment performed Apgars: 7 & 9 Placenta spontaneously expressed and examined; noted to be complete/intact. Vulva, vagina, and cervix inspected EBL: 300 cc All sponge/needle/instrument counts correct at conclusion of procedure Disposition: Mom/baby stable to recovery in LDRP Placental Delivery Description: Spontaneous
--- NOTE | 2020-12-14 13:15 | SW/DCPLANNER ---
Addendum entered by Heather Cunningham 12/14/20 14:34: Infants urine drug screen is negative. This case has been reported to Central Intake ID# [id number]. Original Note: I received a referral for this patient regarding: THC use in . I spoke with patient and infants father (Viral Hilton 02/11/89) this afternoon. Patient tested positive for THC on 11/14/20, 11/29/20, 12/02/20 and at admission 12/14/20. Patient stated that she uses THC to help with anxiety and last time used was at 6:30AM today. was born today [birth year]/20: first name has not been decision: middle name is Frank Yobani. Patient, Marcelino, and three other children (Paramjit Hilton (11), Nicholas Hilton (6) and Bren Hilton (4) will all reside at [address] [place] [address]. Patients contact number is [phone]. Patient stated that she has never had any past involvement with [employer]. Patient is currently established with [facility]. Patient stated that she has: crib, carseat, clothing, diapers and will be breast feeding. Patient anticipates discharge on Thursday. Patients nurse (Courtney) stated that patient and infants father are appropriate with at this time. Due to THC use and positive at admission this will be reported to Central Intake once infant urine drug screen is resulted.
[2020-12-14 16:00] VITALS: BP 112/66; PULSE 68; RESP 18; TEMP 37.1; O2SAT 96
[2020-12-15 05:17] LABS: POC Glucose,Bedside 73 (70-110)
[2020-12-15 06:54] LABS: Hemoglobin 11.2 g/dL (12.2-16.2)
[2020-12-15 08:30] VITALS: BP 118/63; PULSE 74; RESP 20; TEMP 36.7; O2SAT 97
--- NOTE | 2020-12-15 09:20 | HMH.ACPN2 ---
Internal Medicine - PN: Subj *Date: 12/15/20 *Time: 09:20 (This is day #1. The patient is afebrile. Vital signs stable. Abdomen soft. Lochia normal. Uterine fundus involuting well. Nursing well. The baby has been circumcised and is doing well. Hemoglobin 11.2 g. Impression: Stable.) Exam Vital signs and Labs for Last 24 Hours: Temp Pulse Resp BP Pulse Ox 98.7 F 68 18 112/66 96 12/14/20 16:00 12/14/20 16:00 12/14/20 16:00 12/14/20 16:00 12/14/20 16:00 Laboratory Results - last 24 hr 12/14/20 09:40: WBC 19.0 H, RBC 3.76 L, Hgb 11.4 L, Hct 33.7 L, MCV 89.7, MCH 30.2, MCHC 33.7, RDW 14.2, Plt Count 268, MPV 8.5, Neut % (Auto) 87.8 H, Lymph % (Auto) 7.7 L, [place] % (Auto) 3.7, Eos % (Auto) 0.4, Baso % (Auto) 0.4, Neut # (Auto) 16.7 H, Lymph # (Auto) 1.5, [place] # (Auto) 0.7, Eos # (Auto) 0.1, Baso # (Auto) 0.1, Total Counted 100, Neutrophils % (Manual) 82 H, Lymphocytes % (Manual) 13, Monocytes % (Manual) 5, Platelet Estimate Normal, RBC Morphology Normal 12/14/20 09:40: Blood Type A Negative, Antibody Screen Positive 12/14/20 09:40: Antibody Identification Anti-D 12/14/20 21:24: POC Glucose 73 12/15/20 06:15: Hgb 11.2 L, Hct 34.0 L I & O for Last 24 hours: Intake & Output 12/12/20 12/13/20 12/14/20 12/15/20 11:59 11:59 11:59 11:59 Weight 147 lb Microbiology Reports for the Last 24 Hours: Microbiology 12/14/20 07:25 Urine,Clean Catch Urine Culture - Preliminary NO GROWTH AFTER 24 HOURS 12/14/20 09:16 Nasopharyngeal Coronavirus COVID-19 PCR - Final Assessment and Plan (1) 37 weeks gestation of Status: Acute Category: Medical Code(s): Z3A.37 - 37 weeks gestation of (2) Spontaneous rupture of membranes Status: Acute Category: Medical (3) Anxiety and depression Status: Acute Category: Medical Code(s): F41.9 - Anxiety disorder, unspecified; F32.9 - Major depressive disorder, single episode, unspecified (4) SGA (small for gestational age), , affecting care of mother, antepartum Status: Acute Category: Medical Code(s): O36.5990 - Maternal care for other known or suspected poor growth, unspecified trimester, not applicable or unspecified (5) Tobacco smoking affecting Status: Acute Category: Medical Code(s): O99.330 - Smoking (tobacco) complicating , unspecified trimester (6) Positive urine drug screen Problem details: THC Status: Acute Category: Medical Code(s): R82.5 - Elevated urine levels of drugs, medicaments and biological substances (7) Tetrahydrocannabinol (THC) dependence Status: Acute Category: Medical Code(s): F12.20 - Cannabis dependence, uncomplicated
[2020-12-15 16:00] VITALS: BP 126/77; PULSE 69; RESP 18; TEMP 36.7; O2SAT 99
[2020-12-16 08:30] VITALS: BP 128/78; PULSE 86; RESP 20; TEMP 36.5; O2SAT 99
--- NOTE | 2020-12-16 09:03 | HMH.ACPN2 ---
Internal Medicine - PN: Subj *Date: 12/16/20 *Time: 09:03 (This is day #2. The patient is afebrile. Vital signs stable. Lochia normal. Uterine fundus involuting well. Nursing well. She will be discharged today.) Exam Vital signs and Labs for Last 24 Hours: Temp Pulse Resp BP Pulse Ox 98.0 F 69 18 126/77 99 12/15/20 16:00 12/15/20 16:00 12/15/20 16:00 12/15/20 16:00 12/15/20 16:00 Laboratory Results - last 24 hr 12/15/20 06:15: Screen Negative, Baby's Rh Status Positive 12/15/20 10:40: Rhogam Infusion Rhogam release I & O for Last 24 hours: Intake & Output 12/13/20 12/14/20 12/15/20 12/16/20 11:59 11:59 11:59 11:59 Weight 147 lb Microbiology Reports for the Last 24 Hours: Microbiology 12/14/20 07:25 Urine,Clean Catch Urine Culture - Final NO GROWTH AFTER 48 HOURS Assessment and Plan (1) 37 weeks gestation of Status: Acute Category: Medical Code(s): Z3A.37 - 37 weeks gestation of (2) Spontaneous rupture of membranes Status: Acute Category: Medical (3) Anxiety and depression Status: Acute Category: Medical Code(s): F41.9 - Anxiety disorder, unspecified; F32.9 - Major depressive disorder, single episode, unspecified (4) SGA (small for gestational age), , affecting care of mother, antepartum Status: Acute Category: Medical Code(s): O36.5990 - Maternal care for other known or suspected poor growth, unspecified trimester, not applicable or unspecified (5) Tobacco smoking affecting Status: Acute Category: Medical Code(s): O99.330 - Smoking (tobacco) complicating , unspecified trimester (6) Positive urine drug screen Problem details: THC Status: Acute Category: Medical Code(s): R82.5 - Elevated urine levels of drugs, medicaments and biological substances (7) Tetrahydrocannabinol (THC) dependence Status: Acute Category: Medical Code(s): F12.20 - Cannabis dependence, uncomplicated
--- NOTE | 2020-12-16 09:04 | [facility].DCSUM ---
General - General Admission date:: 12/14/20 Discharge date: 12/16/20 (This 30-year-old 5, now para 4, AB 1 white female was admitted at 37 weeks of gestation with spontaneous rupture of membranes. She was augmented with intravenous Pitocin, and went steadily to completion, delivering spontaneously at 1053 on 12/14/2020. He was an 7/9, 5 pound 6 ounce, 18.5 inch male , who is breast-feeding but has been circumcised, and has done well. , the patient is done well. She is eating and ambulating, and passing flatus. Her lochia is normal. Her uterine fundus has involuted well. Her hemoglobin on admission was 11.4 g; it is 11.2 g. She is discharged home on the second day on iron and vitamins, and on Tylenol and Motrin, as needed for pain. Her blood type is a Rh-, and she has received RhoGam. Rubella titer is immune. She is given appropriate instructions as to diet and exercise, and she is to return to Dr. Tidwell's office as scheduled for follow-up.) Hospital Course Rhogam Administration: Given Objective Vital signs: Temp Pulse Resp BP Pulse Ox 98.0 F 69 18 126/77 99 12/15/20 16:00 12/15/20 16:00 12/15/20 16:00 12/15/20 16:00 12/15/20 16:00 Results Labs on day of discharge: Labs from last 24 hours 12/15/20 12/15/20 10:40 06:15 Screen Negative Baby's Rh Status Positive Rhogam Infusion Rhogam release DS: Diagnosis - Discharge Diagnosis (1) 37 weeks gestation of Status: Acute (2) Spontaneous rupture of membranes Status: Acute (3) Anxiety and depression Status: Acute (4) SGA (small for gestational age), , affecting care of mother, antepartum Status: Acute (5) Tobacco smoking affecting Status: Acute (6) Positive urine drug screen Status: Acute Problem details: THC (7) Tetrahydrocannabinol (THC) dependence Status: Acute Discharge Plan - Patient Discharge Instructions Additional Instructions: *NOTHING IN THE VAGINA FOR 6 WEEKS NO HEAVY LIFTING CALL THURSDAY TO SCHEDULE [address] TIDWELL Patient Instructions: Depression, Hemorrhage, DI for Labor and Delivery, Vaginal , DI for Pre-eclampsia, [facility] Post Discharge Instructions, Preventing the Spread of Coronavirus Discharge Instructions - Follow up Plan Follow up with: Lisset Tidwell MD [Staff Physician] - Home Medications: Home Medications Medication Instructions Recorded Confirmed Type melatonin 10 mg capsule 10 mg PO HS PRN #30 cap 05/28/20 12/14/20 Rx prenat.vits,braydon,[id number] 1 tab PO DAILY #30 tab 05/28/20 12/14/20 Rx amoxicillin 875 mg-potassium 1 tab PO BID 10 Days #20 tab 12/10/20 12/14/20 Rx clavulanate 125 mg tablet prednisone 20 mg tablet 20 mg PO BID #10 tab 12/10/20 12/14/20 Rx Lurasidone HCl [Latuda] 40 mg PO BID 12/14/20 12/14/20 History Sertraline HCl [Zoloft] 50 mg PO DAILY 12/15/20 12/15/20 History Sertraline HCl [Zoloft] 100 mg PO HS 12/15/20 12/15/20 History Prescriptions/Medication Reconciliation: No Action melatonin 10 mg capsule 10 mg PO HS PRN #30 cap PRN Reason: sleep prenat.vits,braydon,[id number] 1 tab PO DAILY #30 tab amoxicillin 875 mg-potassium clavulanate 125 mg tablet 1 tab PO BID 10 Days #20 tab prednisone 20 mg tablet 20 mg PO BID #10 tab Lurasidone HCl [Latuda] 40 mg PO BID Sertraline HCl [Zoloft] 100 mg PO HS Sertraline HCl [Zoloft] 50 mg PO DAILY - Problem Reconciliation Problems Reviewed?: Yes
== END 2020-12-16 10:33 | disposition home or self-care (01) | DRG 807 ==
LOC: OBOUT 08:19 → OB 08:19
PROVIDERS: Admitting Provider Obstetrics & Gynecology; PCP Emergency Medicine; Visit Provider Obstetrics & Gynecology
DX: O99.324 Drug use complicating childbirth (principal); Z37.0 Single live birth; O99.344 Other mental disorders complicating childbirth; Z3A.37 37 weeks gestation of pregnancy; F31.9 Bipolar disorder, unspecified; Z87.442 Personal history of urinary calculi; O99.334 Smoking (tobacco) complicating childbirth; F17.210 Nicotine dependence, cigarettes, uncomplicated; F12.20 Cannabis dependence, uncomplicated; Z23 Encounter for immunization
CPT/HCPCS: 59409; 36415; 59025; 76816; 80305; 81001; 82962; 84112; 85007; 85014; 85018; 85025; 85461; 86850; 86870; 87086; 94761; C1758; G0283; J2790; U0003

== ENCOUNTER → 2021-02-11 10:42 | Outpatient (CLI) | payer OTHER, SELFPAY ==
[2021-02-11 11:32] LABS: HCG,Quantitative < 2 mIU/ml (0-5.42)
== END ==
PROVIDERS: Visit Provider Obstetrics & Gynecology
DX: Z30.9 Encounter for contraceptive management, unspecified (principal)
CPT/HCPCS: 36415; 84702

== ENCOUNTER → 2022-01-08 16:00 | Outpatient (CLI) | payer OTHER, SELFPAY ==
[2022-01-08 17:14] LABS: Alanine Aminotransferase 20 U/L (12-78); Albumin Level 4.4 g/dl (3.5-5.0); Alkaline Phosphatase 56 U/L (38-126); Aspartate Amino Transferase 25 U/L (14-36); Bilirubin,Total 0.4 mg/dl (0.2-1.3); Blood Urea Nitrogen 15 mg/dl (7-17); Carbon Dioxide 24 mmol/L (22.0-30.0); Chloride 107 mmol/L (98-107); Estimated Glomerular Filt Rate 98 ml/min (>60); GFR (African American) 118 ML/MIN (>60); Globulin 2.2 g/dL (1.3-3.2); Glucose 99 mg/dl (74-100); Sodium 138 mmol/L (136-145); Total Protein,Serum 6.6 g/dl (6.3-8.2)
[2022-01-08 17:20] LABS: Basophils # 0.1 K/mm3 (0-0.2); Basophils % 1.2 % (0.1-2.0); Eosinophils # 0.1 K/mm3 (0.0-0.4); Eosinophils % 1.4 % (0.1-12.0); Hematocrit 38.1 % (37.0-47.0); Hemoglobin 12.7 g/dL (12.2-16.2); Lymphocytes # 1.9 K/mm3 (0.7-4.5); Lymphocytes % 28.8 % (10-50); Mean Corpuscular HGB Conc 33.3 g/dL (31.8-35.4); Mean Corpuscular Hemoglobin 30.3 pg (27.0-31.2); Mean Corpuscular Volume 90.7 fl (81-99); Monocytes # 0.5 K/mm3 (0.1-1.0); Monocytes % 6.8 % (1.7-9.3); Neutrophils # 4.1 K/mm3 (1.8-7.8); Neutrophils % 61.7 % (37.0-80.0); Platelet Count 223 K/mm3 (142-424); Red Cell Distribution Width 13.1 % (11.5-17.5); White Blood Count 6.6 K/mm3 (4.8-10.8)
== END ==
PROVIDERS: Visit Provider Nurse Practitioner Family
DX: F41.1 Generalized anxiety disorder (principal); Z79.899 Other long term (current) drug therapy
CPT/HCPCS: 80053; 84436; 84443; 85025

== ENCOUNTER → 2022-01-16 13:58 | Outpatient (CLI) | payer OTHER, SELFPAY ==
--- NOTE | 2022-01-16 13:58 | CT_ITS ---
FINAL REPORT CLINICAL HISTORY: back pain, no injury FINDINGS: Axial CT images of the thoracic spine were obtained without contrast. Sagittal and coronal reformatted images were also obtained. This study was performed with techniques to keep radiation doses as low as reasonably achievable (ALARA). Individualized dose reduction techniques using automated exposure control or adjustment of mA and/or kV according to the patient''s size were employed. There is no evidence of fracture. The vertebral alignment is normal. There is no evidence of significant canal stenosis. No paraspinous soft tissue abnormality is identified. IMPRESSION: No fracture or acute bony abnormality. No significant central canal stenosis. Reviewed, Interpreted and Dictated by Foster Beckham III, MD Transcribed by Sid Oropeza Authenticated by Foster Beckham III, MD on 01/16/2022 02:42:[address] [facility]
== END ==
PROVIDERS: PCP Nurse Practitioner Family; Visit Provider Nurse Practitioner Family
DX: M54.6 Pain in thoracic spine (principal)
CPT/HCPCS: 72128

== ENCOUNTER → 2022-02-06 13:29 | Outpatient (CLI) | payer OTHER, SELFPAY ==
[2022-02-08 08:12] LABS: Estradiol 87.4 pg/mL (.); FSH 5.3 mIU/mL (.); LH 13.5 mIU/mL (.); Progesterone 0.2 ng/mL (.)
[2022-02-14 12:12] LABS: Testosterone, Total, LC/MS 16.5 ng/dL (10.0-55.0); Testosterone,Free 0.5 pg/mL (0.0-4.2)
== END ==
PROVIDERS: PCP Nurse Practitioner Family; Visit Provider Obstetrics & Gynecology
DX: R68.82 Decreased libido (principal)
CPT/HCPCS: 36415; 82670; 83001; 83002; 84144; 84402; 84403

== ENCOUNTER 2022-03-10 10:00 | Outpatient (RCR) | payer OTHER, SELFPAY ==
--- NOTE | 2022-02-19 10:42 | HMH.PTOPEV ---
PT Outpatient Evaluation Rehab PT Outpatient Evaluation Start: 02/19/22 10:28 Freq: Status: Active Protocol: Document 02/19/22 10:29 SHARLA (Rec: 02/19/22 10:42 SHARLA [id number]) Electronically Signed By Edwar Mcrae, PT 02/19/22 10:29 Outpatient Therapy Subjective History Subjective History Pt reports h/o intermittent neck and low back pain, most recent exacerbation pt reports has been lingering for the last ~2 months. Pt reports right > left sided LBP with referred pain in to bilateral hip areas. Pt reports neck pain starts in upper trap areas and refers into cervical paraspinals and suboccipital areas. Chief Complaint Pain,Stiff Symptom Type Ache,Dull Symptoms Relieved By Rest/Positioning,OTC Meds Symptoms Aggravated By Bending/Stooping,Physical Activity,Lifting Prior Functional Limitations Reaching,Lifting,Housework, Bending/Stooping Current Functional Limitations Reaching,Lifting,Housework, Bending/Stooping Symptom Description Constant but Variable Level of pain today (0-10) 5 Pain scale - at its best (0-10) 5 Pain scale - at its worst (0-10) 7 Cervical Eval Palpation Cervical Muscles R Cervical Paraspinal,L Cervical Paraspinal,R Suboccipital,L Suboccipital,R Upper Trapezius,L Upper Trapezius Cervical/Thoracic Palpation Findings Tenderness,Trigger Point, Muscle Guarding Posture Head/C-Spine Posture Sitting Position Neutral Position Head/C-Spine Posture Standing Position Neutral Position Flexibility Deficits Upper Trapezius Muscle Length (R) Mild Tightness,(L) Mild Tightness Scalene Group Muscle Length (R) Mild Tightness,(L) Mild Tightness Passive Joint Mobility Cervical PIVM WNL: R OA L OA R AA L AA R C2/3 L C2/3 R C3/4 L C3/4 R C4/5 L C4/5 R C5/6
== END 2022-03-10 10:05 | disposition home or self-care (01) ==
LOC: PT 10:00
PROVIDERS: PCP Nurse Practitioner Family; Visit Provider Nurse Practitioner Family
DX: M54.50 Low back pain, unspecified (principal)
CPT/HCPCS: 20561; 97010; 97014; 97035; 97110; 97163; G0283

== ENCOUNTER 2023-11-29 09:52 | Emergency (ER) | payer OTHER, SELFPAY ==
[2023-11-29 10:05] VITALS: BP 106/73; PULSE 98; RESP 21; TEMP 37.1; O2SAT 100; BMI 22.3
--- NOTE | 2023-11-29 10:24 | ED_ITS ---
Discharge Plan Disposition Patient Disposition: Home, Self-Care Condition: Good Prescriptions Prescriptions: New azithromycin [Zithromax Z-Corky] 250 mg tablet See Rx Instructions .ROUTE .COMPLEX 5 Days Qty: 6 0RF Rx Instructions: For 250 mg dose pack: take 500 mg today (day 1), then 250 mg for 4 days (days 2-5) No Action bupropion HCl 300 mg tablet extended release 24 hr See Rx Instructions .ROUTE .COMPLEX Qty: 90 0RF Dose Instruction: Take 1 tablet by mouth once daily Rx Instructions: Take 1 tablet by mouth once daily Referrals Follow up/Referrals: Rico Kingsley DO [Primary Care Provider] - See instructions Activity Restrictions/Add. Instructions Additional Instructions/Restrictions: *Monitor Temp, Over the counter Motrin or Tylenol as directed/as needed Tylenol every 4 hours and Motrin every 6 hours (as long as your family doctor has told you that you can take it) for fever or pain. and straight to ER if unable to lower temp less than 101.0 after medication given *Warm salt water gargles may help to soothe the throat *Throat Lozenges? *Warm fluids like tea with honey may help to soothe the throat? *Sleep elevated *Humidifier/Vaporizer Your throat swab was sent for culture. Those results are typically sent to your primary care. Be sure to follow up in 2-3 days with your family doctor/primary care physician if no improvement so they can review those result and treat if necessary. If you don?t have a primary care doctor, I recommend you get one but in the mean time, you will have to return to a walk in clinic Follow up IMMEDIATELY for new or worsening symptoms or no Noticeable improvement over the next 48-72 hours. 911 for difficulty breathing or swallowing Clinical Impressions Clinical Impression: Pharyngitis Instructions Patient Instructions: Sore Throat Discharge ED Provider: Flavia Horta [facility] [place] HPI General Stated complaint: sore throat Mode of Arrival: Ambulatory Source of Information: Patient Limitations: No Limitations Time Seen by Provider: 11/29/23 10:24 Description of Symptoms (Recalled from Triage Doc. by RN): PATIENT C/O SORE THROAT HEENT Symptoms (Recalled from RN notes): Yes Resp Symptoms (Recalled from RN notes): No Skin Symptoms (Recalled from RN notes): No MS Symptoms (Recalled from RN notes): No Functional Status (Recalled from RN notes): WNL History of Present Illness Provider Complaint: Patient states that she has been having sore throat for several days States that now her child is complaining with sore throat so she brought him in and she is going to get checked also worried that she may have strep throat Related Data Previous Rx's Medication Instructions Recorded bupropion HCl 300 mg 24 hr tablet, See Rx Instructions .Route 10/05/23 extended release .COMPLEX #90 tabs azithromycin 250 mg tablet See Rx Instructions PO .COMPLEX 5 11/29/23 (Zithromax Z-Corky) days #6 tabs Allergies Allergy/AdvReac Type Severity Reaction Status Date / Time No Known Allergies Allergy Verified 05/27/23 14:49 Worker's Comp Is this a Worker's Comp case?: No [facility] Disclaimer: The information contained in this section may have been updated after the patient was seen, as this information can be updated by other users. Medical History (Updated 11/29/23 @ 10:27 by Flavia Horta APRN) Insomnia Restless legs syndrome Surgical History (Updated 05/27/23 @ 14:51 by Shira Juan CMA) History of tonsillectomy Social History Smoking Status: Current every day smoker alcohol intake: current substance use type: marijuana current occupational status: unemployed Travel in the last 8 weeks: None ROS Obtained: Yes All systems reviewed & no additional complaints except as documented and Yes Systems reviewed as appropriate & no additional complaints except as documented Constitutional Constitutional: Reports system reviewed and no additional complaints, except as documented and Reports as per HPI ENT Ears, Nose, Mouth, and Throat: Reports system reviewed and no additional complaints, except as documented, Reports as per HPI and Reports sore throat Cardiovascular Cardiovascular: Reports system reviewed and no additional complaints, except as documented and Reports as per HPI Respiratory Respiratory: Reports system reviewed and no additional complaints, except as documented and Reports as per HPI Gastrointestinal Gastrointestingal: Reports system reviewed and no additional complaints, except as documented and as per HPI Physical Exam General General appearance: alert and in no apparent distress ENT ENT exam: Present mucous membranes moist Expanded ENT Exam Throat exam: Present other (Pharyngeal erythema noted with PND) Respiratory Respiratory exam: Present normal lung sounds bilaterally; Absent respiratory distress or wheezes Cardiovascular Cardiovascular exam: Present regular rate, normal rhythm and normal heart sounds Neurological Exam Neurological exam: Present alert, oriented X3 and normal gait Medical Decision Making Marco Inquiry Pt receiving controlled substance: No Marco was queried for this patient: No Vital Signs: 11/29/23 10:05 Temperature 98.7 F Temperature Source Oral Pulse Rate [Left Brachial] 98 H Respiratory Rate 21 Blood Pressure [Left Arm] 106/73 L Blood Pressure Mean [Left Arm] 84 Blood Pressure Source [Left Arm] Automatic Cuff Blood Pressure Position [Left Arm] Sitting 02 Sat by Pulse Oximetry 100 Oxygen Delivery Method Room Air Lab Data Lab results reviewed: Yes I reviewed the patient's lab results.
[2023-11-29 10:32] VITALS: BP 106/73; PULSE 98; RESP 21; TEMP 37.1; O2SAT 100
[2023-11-29 10:36] LABS: UTC Strep Screen (Rapid) Negative (Negative)
== END 2023-11-29 10:39 | disposition home or self-care (01) ==
PROVIDERS: Emergency Provider Nurse Practitioner; PCP Internal Medicine
DX: J02.9 Acute pharyngitis, unspecified (principal); F17.210 Nicotine dependence, cigarettes, uncomplicated; Z20.818 Contact with and (suspected) exposure to other bacterial communicable diseases; Z56.0 Unemployment, unspecified
CPT/HCPCS: 87880; 99204; 99212; G0463